=== PATIENT | male | born 1995 | race Hispanic/Latino ===

== ENCOUNTER 2021-02-13 17:49 | Emergency (ER) | payer SELFPAY ==
--- OUTSIDE RECORDS SUMMARY | 2021-02-13 17:51 | XMS REPORT | Continuity of Care Document ---
:1995 Author Organization [facility] t Address [address] [place] [address] Care Team Providers Name Role Phone Unavailable Unavailable Unavailable Payers Payer Name Policy Type Policy Number Effective Date Expiration Date S ource Problems This patient has no known problems. Allergies, Adverse Reactions, Alerts Allergy Allergy Status Severity Reaction(s) Onset Inactive Treating Comm ents Source Name Type Date Date Clinician No Known DA Active U 2018-06 [facility] 06-22 [place] s 00:00: [address] Medications This patient has no known medications. Procedures This patient has no known procedures. Results Test Description Test Time Test Comments Results Result [facility] e Comments - XR CHEST 2 V 2019-04-22 FAX: Y 16:02:00 Keegan Jhaveri DO [phone] Camps: ER St: REG FAX: Solange Roberson [phone] Name: YOAN EASON [facility] : 1995 Age/S: 23/M [address] Unit #: [id number] Loc: [facility] [place], [place] [address] Phys: JhaveriKeegan DO Acct: [id number] Dis Date: Status: REG ER PHONE #: [phone] Exam Date: 04/22/2019 1555 FAX #: [phone] Reason: fever EXAMS: CPT CODE: [id number] XR CHEST 2 V 20255 EXAM: CHEST 2 VIEWS INDICATION: FEVER LOCATION: B2 COMPARISON: None available TECHNIQUE: PA and lateral views of the chest. FINDINGS: The heart size is normal. The lungs are clear bilaterally. The pulmonary vasculature is normal. No pneumothorax or pleural effusion is identified. The osseous structures are normal. IMPRESSION: No acute cardiopulmonary process. at 1602 Reported and signed by: ILEANA BLAND M.D. CC: Keegan Jhaveri DO; Solange MAC Technologist: ALBERTINA FERGUSON RT,(R) ARRT Transcribed Date/Time/By: 04/22/2019 (5312) :[id number] Orig Print D/T: S: 04/22/2019 (8434) Automated exposure control, iterative reconstruction technique, and/oradjustment of mA and/or kV according to patient's size was utilizedfor optimum radiation dose reduction. PAGE 1 Signed Report
--- NOTE | 2021-02-13 20:24 | RAD REPORT ---
EXAM DESCRIPTION: RAD - Elbow Left 3 View - 02/13/2021 7:34 pm CLINICAL HISTORY: Pain;Swelling COMPARISON: None. FINDINGS: No fracture is identified and no elevated posterior fat pad. There is no dislocation or pe riosteal reaction noted. No air or foreign body in the soft tissues. There is slight edema in the jacob bcutaneous fatty tissues posterior and medial to the elbow joint. IMPRESSION: Soft tissue edema changes are present in the superficial fatty tissues. No acute bone or joint finding.
--- NOTE | 2021-02-13 20:38 | EDPHYS ---
Physician Documentation [facility] Name: Jarad Jordan Age: 25 yrs Sex: Male : 1995 Arrival Date: 02/13/2021 Time: 17:53 Bed DX3 Private MD: ED Physician Nehemiah Huggins HPI: 02/13 20:35 This 25 yrs old Male presents to ER via Ambulatory with complaints of SWOLLEN rn ELBOW. 20:35 The patient or guardian complains of pain, swelling. The complaints affect the left rn elbow. Onset: The symptoms/episode began/occurred 1 week(s) ago. Modifying factors: The symptoms are alleviated by remaining still, the symptoms are aggravated by Hitting elbow. Associated signs and symptoms: Pertinent positives: erythema, swelling, warmth, Pertinent negatives: fever. Severity of symptoms: At their worst the symptoms were mild, in the emergency department the symptoms have improved. The patient has not experienced similar symptoms in the past. The patient has not recently seen a physician. Patient reports about 1 week of left elbow pain. Denies trauma. Denies fever. Does not hurt to range left elbow. Hurts to tap elbow or her hit elbow on surface. No other joints involved. Has never happened before.. Historical: - Allergies: 18:09 No Known Allergies; ll1 - PMHx: 18:09 None; ll1 - PSHx: 18:09 None; ll1 - Immunization history:: Last tetanus immunization: up to date. - Social history:: Smoking status: Patient reports the use of cigarette tobacco products, denies chronic smoking, but will smoke occasionally. - Family history:: not pertinent. - Hospitalizations: : No recent hospitalization is reported. ROS: 20:35 Constitutional: Negative for fever, chills, and weight loss, Eyes: Negative for injury, rn pain, redness, and discharge, Neck: Negative for injury, pain, and swelling, Cardiovascular: Negative for chest pain, palpitations, and edema, Respiratory: Negative for shortness of breath, cough, wheezing, and pleuritic chest pain, Abdomen/GI: Negative for abdominal pain, nausea, vomiting, diarrhea, and constipation, MS/Extremity: Positive for left elbow pain and swelling, negative for trauma Skin: Positive for redness and swelling to the left elbow Neuro: Negative for headache, weakness, numbness, tingling, and seizure. Exam: 20:35 Constitutional: This is a well developed, well nourished patient who is awake, alert, rn and in no acute distress. Head/Face: Normocephalic, atraumatic. Cardiovascular: Regular rate and rhythm. No pulse deficits. Skin: Warm, dry, mild erythema and tenderness to soft tissues overlying olecranon. No break in skin or fluctuance. MS/ Extremity: Pulses equal, no cyanosis. Neurovascular intact. Full, normal range of motion. Equal circumference. Vital Signs: 18:08 BP 128 / 73; Pulse 83; Resp 17; Temp 97.9; Pulse Ox 98% ; Weight 81.65 kg; Height 5 ft. ll1 8 in. (172.72 cm); Pain 10/10; 21:01 BP 129 / 68; Pulse 70; Resp 16 S; Temp 98.9(TE); Pulse Ox 98% on R/A; bb 18:08 Body Mass Index 27.37 (81.65 kg, 172.72 cm) ll1 MDM: 20:21 Patient medically screened. rn 20:35 Differential diagnosis: tendonitis, Cellulitis, olecranon bursitis. Data reviewed: rn vital signs, nurses notes, radiologic studies, plain films. Test interpretation: by ED physician or midlevel provider: plain radiologic studies, X-ray left elbow negative for fracture or dislocation.. Counseling: I had a detailed discussion with the patient and/or guardian regarding: the historical points, exam findings, and any diagnostic results supporting the discharge/admit diagnosis, radiology results, the need for outpatient follow up, to return to the emergency department if symptoms worsen or persist or if there are any questions or concerns that arise at home. Special discussion: I discussed with the patient/guardian in detail that at this point there is no indication for admission to the hospital. It is understood, however, that if the symptoms persist or worsen the patient needs to return immediately for re-evaluation. 02/13 19:06 Order name: XRAY Elbow LEFT 3 view; Complete Time: 20:30 rn Administered Medications: 20:58 Drug: Clindamycin 300 mg Route: PO; bb 20:58 Follow up: Response: Medication administered at discharge. bb Disposition Summary: 02/13/21 20:38 Discharge Ordered Location: Home rn Problem: new rn Symptoms: have improved rn Condition: Stable rn Diagnosis - Olecranon bursitis, left elbow rn Followup: rn - With: Private Physician - When: As needed - Reason: Recheck today's complaints, Re-evaluation by your physician Discharge Instructions: - Discharge Summary Sheet rn - Elbow Bursitis rn Forms: - Medication Reconciliation Form rn - Thank You Letter rn - Antibiotic ortho rn - Prescription Opioid Use rn Prescriptions: - Clindamycin HCl 300 mg Oral Capsule - take 1 capsule by ORAL route every 6 hours for 10 days; 40 capsule; Refills: 0, rn Product Selection Permitted - Diclofenac Sodium 75 mg Oral tablet,delayed release (DR/EC) - take 1 tablet by ORAL route 2 times per day; 15 tablet; Refills: 0, Product rn Selection Permitted Signatures: Dispatcher [employer] Keena Ryder, Nehemiah Castaneda RN, MD MD rn Lewis, Lynsay, RN RN ll1
--- NOTE | 2021-02-13 20:38 | ER ---
Nurse's Notes [facility] Name: Jarad Jordan Age: 25 yrs Sex: Male : 1995 Arrival Date: 02/13/2021 Time: 17:53 Bed DX3 Private MD: Diagnosis: Olecranon bursitis, left elbow Presentation: 02/13 18:08 Chief complaint: Patient states: L elbow pain, redness, and swelling off/on for 6 days. ll1 No fever. Coronavirus screen: Client denies travel out of the [place] in the last 14 days. At this time, the client does not indicate any symptoms associated with coronavirus-19. Ebola Screen: Patient denies travel to an Ebola-affected area in the 21 days before illness onset. Initial Sepsis Screen: Does the patient meet any 2 criteria? No. Patient's initial sepsis screen is negative. Does the patient have a suspected source of infection? Yes: Skin breakdown/wound Bone or joint infection. Risk Assessment: Do you want to hurt yourself or someone else? Patient reports no desire to harm self or others. Onset of symptoms was February 08, 2021. 18:08 Method Of Arrival: Ambulatory ll1 18:08 Acuity: MICHELLE 4 ll1 Historical: - Allergies: 18:09 No Known Allergies; ll1 - PMHx: 18:09 None; ll1 - PSHx: 18:09 None; ll1 - Immunization history:: Last tetanus immunization: up to date. - Social history:: Smoking status: Patient reports the use of cigarette tobacco products, denies chronic smoking, but will smoke occasionally. - Family history:: not pertinent. - Hospitalizations: : No recent hospitalization is reported. Assessment: 20:59 Reassessment: Patient is alert, oriented x 3, equal unlabored respirations, skin bb warm/dry/pink. pt seen by this RN on discharge pt verbalized understanding of and agrees to plan of care discharge instructions given pt ambulated with steady gait to exit. General: Appears in no apparent distress. Vital Signs: 18:08 BP 128 / 73; Pulse 83; Resp 17; Temp 97.9; Pulse Ox 98% ; Weight 81.65 kg; Height 5 ft. ll1 8 in. (172.72 cm); Pain 10/10; 21:01 BP 129 / 68; Pulse 70; Resp 16 S; Temp 98.9(TE); Pulse Ox 98% on R/A; bb 18:08 Body Mass Index 27.37 (81.65 kg, 172.72 cm) ll1 ED Course: 17:53 Patient arrived in ED. ja2 18:09 Triage completed. ll1 18:10 Arm band placed on. ll1 19:33 XRAY Elbow LEFT 3 view In Process Unspecified. EDMS 20:21 Nehemiah Huggins MD is Attending Physician. rn 21:01 No provider procedures requiring assistance completed. Patient did not have IV access bb during this emergency room visit. Administered Medications: 20:58 Drug: Clindamycin 300 mg Route: PO; bb 20:58 Follow up: Response: Medication administered at discharge. bb Outcome: 20:38 Discharge ordered by . rn 21:01 Discharged to home ambulatory. bb 21:01 Condition: stable 21:01 Discharge instructions given to patient, Instructed on discharge instructions, follow up and referral plans. medication usage, Demonstrated understanding of instructions, follow-up care, medications, Prescriptions given X 2. 21:02 Patient left the ED. bb Signatures: Dispatcher [employer] EDMS Keena Wilson RN RN bb Nieto, Roman, MD MD rn Lewis, Lynsay, RN RN 1 Debby Macias
[2021-02-13 21:31] VITALS: O2SAT 98
[2021-02-13 21:33] VITALS: BP 129/68; TEMP 98.9
== END 2021-02-13 21:02 | disposition home or self-care (01) ==
LOC: ER 17:49
DX: M70.22 Olecranon bursitis, left elbow (principal); F17.210 Nicotine dependence, cigarettes, uncomplicated
CPT/HCPCS: 99283